=== PATIENT | female | born 1985 | race African-American/Black ===

== ENCOUNTER 2021-06-29 22:46 | Emergency (ER) | payer SELFPAY ==
[2021-06-29 23:00] VITALS: BP 143/95; PULSE 91; RESP 18; TEMP 36.7; O2SAT 100
[2021-06-30 01:49] VITALS: BP 147/94; PULSE 84; RESP 18; O2SAT 100
--- NOTE | 2021-06-30 02:02 | PC.NURSE ---
pt reports feeling better and wants to leave. Still has some pain RLQ but much better than it was. Advised to stay for MD saul does not want to stay.
== END 2021-06-30 02:11 | disposition left against medical advice (07) ==
DX: R10.31 Right lower quadrant pain (principal)
CPT/HCPCS: 99199